=== PATIENT | male | born 2000 | race African-American/Black ===

== ENCOUNTER 2018-11-18 18:14 | Emergency (ER) | payer OTHER ==
[2018-11-18 18:41] VITALS: BP 138/68
--- NOTE | 2018-11-18 19:52 | UC ---
UC General HPI - HPI Summary HPI Summary: pt cut the tip of his L pinky with a knife while cutting a bagel this am. tetanus is utd. no fb sensation or limited ROM. area sore and a little open. - History of Current Complaint Chief Complaint: UCLaceration Stated Complaint: LEFT LITTLE FINGER LACERATION Time Seen by Provider: 11/18/18 19:46 Hx Obtained From: Patient Onset/Duration: Sudden Onset Timing: Constant Pain Intensity: 1 Aggravating: touch Associated Signs & Symptoms: Negative: Edema, Fever - Allergy/Home Medications Allergies/Adverse Reactions: Allergies Allergy/AdvReac Type Severity Reaction Status Date / Time No Known Allergies Allergy Verified 11/18/18 18:37 Home Medications: Home Medications NK [No Home Medications Reported] 11/18/18 [History Confirmed 11/18/18] PMH/Surg Hx/FS Hx/Imm Hx Previously Healthy: Yes - Surgical History Surgical History: None - Family History Known Family History: Positive: Non-Contributory - Social History Occupation: Student Alcohol Use: None Substance Use Type: Marijuana Substance Use Comment - Amount & Last Used: occasionally Smoking Status (MU): Never Smoked Tobacco - Immunization History Hx Tetanus, Diphtheria Vaccination: Yes Vaccination Up to Date: Yes Review of Systems All Other Systems Reviewed And Are Negative: Yes Constitutional: Positive: Negative Skin: Positive: Negative Eyes: Positive: Negative ENT: Positive: Negative Respiratory: Positive: Negative Cardiovascular: Positive: Negative Gastrointestinal: Positive: Negative Genitourinary: Positive: Negative Motor: Positive: Negative Neurovascular: Positive: Negative Musculoskeletal: Positive: Negative Neurological: Positive: Negative Psychological: Positive: Negative Physical Exam Triage Information Reviewed: Yes Appearance: Well-Appearing Vital Signs: Initial Vital Signs Temp 98.2 F 11/18/18 18:35 Pulse 60 11/18/18 18:35 Resp 14 11/18/18 18:35 BP 138/68 11/18/18 18:35 Pulse Ox 100 11/18/18 18:35 Vital Signs Reviewed: Yes Eyes: Positive: Conjunctiva Clear ENT: Positive: Normal ENT inspection Neck: Positive: Supple Respiratory: Positive: Lungs clear Cardiovascular: Positive: RRR Abdomen Description: Positive: Nontender Bowel Sounds: Positive: Present Musculoskeletal: Positive: ROM Intact Neurological: Positive: Alert Psychological: Positive: Age Appropriate Behavior Skin Exam: Normal, Other - tip of L pinkmarlon has a 1.2rrl6pr laceration. no flap. small amount of fat seen. no active bleeding. finger has full s/v/m function. Course/Dx - Course Course Of Treatment: area subject to recurrent bleeding and trauma. steri strips advised. pt educated on increased risk/ s/s's for infection given age of wound. Procedure: Finger soaked in warm-soapy water then rinsed and dried. no FB and no bleeding. Edges prep with mastisol. 2 steri strips applied followed by a bandaide. pt tolerated well. - Diagnoses Provider Diagnosis: Laceration of left little finger Discharge - Sign-Out/Discharge Documenting (check all that apply): Patient Departure All imaging exams completed and their final reports reviewed: No Studies - Discharge Plan Condition: Stable Disposition: HOME Patient Education Materials: [place] (ED) Referrals: BETTE DAWSON [JenniferBUSINESS, APPLICATION, OTHER] - 5 Days - Billing Disposition and Condition Condition: STABLE Disposition: Home
== END 2018-11-18 20:16 | disposition home or self-care (01) ==
LOC: UCCORT 18:14
DX: S61.217A Laceration without foreign body of left little finger without damage to nail, initial encounter (principal); W26.0XXA Contact with knife, initial encounter; Y93.89 Activity, other specified; Y92.9 Unspecified place or not applicable
CPT/HCPCS: 99201; G0463